=== PATIENT | female | born 1985 ===

== ENCOUNTER 2025-05-28 23:28 | Observation (INO) ==
[2025-05-28] MEDS ORDERED: IOPAMIDOL 100 ML BOTTLE IV ONE (23:29)
[2025-05-29] MEDS ORDERED: ONDANSETRON 4 MG/2 ML VIAL IV PRN ×2 (00:32→03:24)
[2025-05-29] MEDS: KETOROLAC 30 MG/ML VIAL IV PRN (00:44)
[2025-05-29] MEDS: 0.9 % SODIUM CHLORIDE 1,000 ML IV ONE (00:45)
[2025-05-29 00:53] LABS: Basophils # (Auto) 0.06 K/mcL (0.00-0.30); Basophils % (Auto) 0.4 % (0.0-2.0); Eosinophils # (Auto) 0.16 K/mcL (0.00-0.70); Eosinophils % (Auto) 1.0 % (0.0-7.0); Hematocrit 40.7 % (34.1-44.9); Hemoglobin 13.2 g/dL (11.2-15.7); Lymphocytes # (Auto) 2.68 K/mcL (1.50-4.80); Lymphocytes % (Auto) 16.4 % (15.5-49.0); Mean Corpuscular HGB Conc 32.4 g/dL (31.0-36.0); Monocytes # (Auto) 1.55 K/mcL (0.10-0.90); Monocytes % (Auto) 9.5 % (1.0-12.0); Neutrophils % (Auto) 72.5 % (38.0-78.0); Platelet Count 351 K/mcL (140-440); RBC 4.37 M/mcL (3.59-5.38); WBC 16.4 K/mcL (4.5-11.0)
[2025-05-29 01:03] LABS: Bilirubin,Urine Negative (Negative); Color,Urine Yellow; Glucose,Urine (UA) Negative (Negative); Ketones,Urine Negative (Negative); Leukocyte Esterase,Urine Negative /uL (Negative); PH,Urine 7.5 (5.0-9.0); Protein,Urine Negative (Negative); Specific Gravity,Urine 1.020 (1.000-1.035); Urobilinogen,Urine Normal
[2025-05-29 01:11] LABS: ALT/SGPT 16 U/L (<40); AST/SGOT 18 U/L (<32); Albumin 4.0 gm/dL (3.2-5.2); Albumin/Globulin Ratio 1.1 (1.0-2.3); Alkaline Phosphatase 97 U/L (39-117); Anion Gap 13.0 (8.0-16.0); Bilirubin,Total 0.4 mg/dL (0.1-1.0); Blood Urea Nitrogen 19 mg/dL (6-20); Calcium 9.3 mg/dL (8.6-10.4); Carbon Dioxide 24 mmol/L (22-30); Chloride 99 mmol/L (96-108); Globulin 3.5 gm/dL (2.2-3.7); Glucose 98 mg/dL (70-105); Potassium 4.1 mmol/L (3.3-5.1); Sodium 136 mmol/L (133-145)
[2025-05-29] MEDS: PIPERACILLIN SODIUM/TAZOBACTAM 3.375 GM in DEXTROSE 5% IN WATER 100 ML IV ONE (03:34)
[2025-05-29] MEDS: 0.9 % SODIUM CHLORIDE 1,000 ML IV SCH ×3 (03:52→12:52)
[2025-05-29] MEDS: PIPERACILLIN SODIUM/TAZOBACTAM 3.375 GM in DEXTROSE 5% IN WATER 100 ML IV SCH (03:53)
[2025-05-29] MEDS: PIPERACILLIN SODIUM/TAZOBACTAM 3.375 GM in DEXTROSE 5% IN WATER 50 ML IV ONE (03:53)
[2025-05-29] MEDS: KETOROLAC 15 MG/ML VIAL IV PRN (07:19)
[2025-05-29] MEDS: ACETAMINOPHEN 1,000 MG/100 ML BAG IV PRN (11:28)
[2025-05-29] MEDS: PIPERACILLIN SODIUM/TAZOBACTAM 4.5 GM in DEXTROSE 5% IN WATER 100 ML IV SCH (12:10)
[2025-05-29] MEDS ORDERED: ACETAMINOPHEN 1,000 MG/100 ML BAG IV SCH (15:00)
[2025-05-29] MEDS ORDERED: fentaNYL 100 MCG/2 ML VIAL IV PRN (18:03)
[2025-05-29] MEDS: ACETAMINOPHEN 1,000 MG/100 ML BAG IV SCH (19:50)
[2025-05-30 06:31] LABS: Basophils # (Auto) 0.06 K/mcL (0.00-0.30); Basophils % (Auto) 0.6 % (0.0-2.0); Eosinophils # (Auto) 0.31 K/mcL (0.00-0.70); Eosinophils % (Auto) 3.1 % (0.0-7.0); Hematocrit 35.8 % (34.1-44.9); Hemoglobin 11.4 g/dL (11.2-15.7); Lymphocytes # (Auto) 2.27 K/mcL (1.50-4.80); Lymphocytes % (Auto) 22.7 % (15.5-49.0); Mean Corpuscular HGB Conc 31.8 g/dL (31.0-36.0); Monocytes # (Auto) 0.83 K/mcL (0.10-0.90); Monocytes % (Auto) 8.3 % (1.0-12.0); Neutrophils % (Auto) 65.1 % (38.0-78.0); Platelet Count 275 K/mcL (140-440); RBC 3.72 M/mcL (3.59-5.38); WBC 10.0 K/mcL (4.5-11.0)
[2025-05-30 06:55] LABS: ALT/SGPT 12 U/L (<40); AST/SGOT 15 U/L (<32); Albumin 3.3 gm/dL (3.2-5.2); Albumin/Globulin Ratio 1.1 (1.0-2.3); Alkaline Phosphatase 83 U/L (39-117); Anion Gap 9.0 (8.0-16.0); Bilirubin,Direct 0.2 mg/dL (<0.3); Bilirubin,Total 0.5 mg/dL (0.1-1.0); Blood Urea Nitrogen 11 mg/dL (6-20); Calcium 8.6 mg/dL (8.6-10.4); Carbon Dioxide 23 mmol/L (22-30); Chloride 106 mmol/L (96-108); Globulin 2.9 gm/dL (2.2-3.7); Glucose 86 mg/dL (70-105); Phosphorous 4.1 mg/dL (2.5-4.5); Potassium 4.3 mmol/L (3.3-5.1); Sodium 138 mmol/L (133-145); Triglycerides 62 mg/dL (<150); Uric Acid 2.6 mg/dL (2.5-8.0)
[2025-05-31 06:26] LABS: Basophils # (Auto) 0.06 K/mcL (0.00-0.30); Basophils % (Auto) 0.8 % (0.0-2.0); Eosinophils # (Auto) 0.26 K/mcL (0.00-0.70); Eosinophils % (Auto) 3.6 % (0.0-7.0); Hematocrit 34.8 % (34.1-44.9); Hemoglobin 11.1 g/dL (11.2-15.7); Lymphocytes # (Auto) 2.64 K/mcL (1.50-4.80); Lymphocytes % (Auto) 36.7 % (15.5-49.0); Mean Corpuscular HGB Conc 31.9 g/dL (31.0-36.0); Monocytes # (Auto) 0.67 K/mcL (0.10-0.90); Monocytes % (Auto) 9.3 % (1.0-12.0); Neutrophils % (Auto) 49.6 % (38.0-78.0); Platelet Count 279 K/mcL (140-440); RBC 3.63 M/mcL (3.59-5.38); WBC 7.2 K/mcL (4.5-11.0)
== END 2025-05-31 17:14 | disposition home or self-care (01) ==
LOC: ED 23:28 → MEDSUR 05-29 07:37 → INTOOBSV 05-29 07:37
PROVIDERS: ADMIT Internal Medicine; ATTEND Family Medicine Adult Medicine